=== PATIENT | male | born 1960 | race Caucasian/White ===

== ENCOUNTER 2016-12-25 07:39 | Inpatient (IN) | payer MEDICAID, OTHER ==
[2016-12-25] VITALS (7 sets, daily range): BP systolic 81–106; BP diastolic 34–68
[~2016-12-25] VITALS: Ht 175.3 cm; Wt 53.1 kg
[2016-12-25] MEDS ORDERED: KETOROLAC 30MG/ML VIAL IV ONE (08:00)
[2016-12-25] MEDS ORDERED: VANCOMYCIN 1 G PREMIX 200 ML IV SCH ×2 (08:00→14:45)
[2016-12-25] MEDS ORDERED: PIPERACILLIN/TAZOBACTAM 3.375GM/50ML PREMIX IV ONE (08:15)
[2016-12-25] MEDS ORDERED: PIPERACILLIN/TAZ 3.375G PREMIX 50 ML IV SCH (08:15)
[2016-12-25 08:35] LABS: CHLORIDE 88 mEq/L (98-107); INR 1.4; PROTHROMBIN TIME 14.7 sec (9.4-11.6)
[2016-12-25 08:44] LABS: CARBON DIOXIDE 14 mEq/L (21-32)
[2016-12-25 08:46] LABS: HEMATOCRIT. 36.3 % (42.0-52.0); MEAN CORPUSCULAR HEMOGLOBIN 31.4 pg (28.0-32.0); MEAN PLATELET VOLUME 8.1 fl (7.4-10.4); PLATELET 499 x1000/uL (130-400); RED BLOOD CELL COUNT 3.82 mill/uL (4.7-6.1); RED CELL DISTRIBUTION WIDTH 14.4 % (11.6-14.6)
[2016-12-25] MEDS ORDERED: INSULIN REGULAR (HUMULIN R) 300UNITS/3ML SUBCUT ONE (09:15)
[2016-12-25] MEDS ORDERED: ACETAMINOPHEN 325MG TABLET PO PRN ×2 (09:30→14:45)
[2016-12-25] MEDS ORDERED: SODIUM CHLORIDE 0.9% 1000ML BAG (SEPSIS BOLUS) IV ONE (09:30)
[2016-12-25 10:48] LABS: PLATELET ESTIMATE INCREASED
[2016-12-25] MEDS ORDERED: INSULIN REGULAR (HUMULIN R) 300UNITS/3ML IV ONE (11:30)
[2016-12-25] MEDS ORDERED: DIPHENHYDRAMINE 50MG/ML VIAL IV PRN (14:45)
[2016-12-25] MEDS ORDERED: ONDANSETRON HCL 4MG/2ML VIAL IV PRN (14:45)
[2016-12-25] MEDS ORDERED: DEXTROSE 50% WATER 50ML SYRINGE IV PRN (14:45)
[2016-12-25] MEDS ORDERED: IPRATROPIUM/ALBUTEROL 0.5-3(2.5)MG/3ML NEB INH PRN (14:45)
[2016-12-25] MEDS: SODIUM CHLORIDE 0.9% 1,000 ML IV SCH ×2 (15:07→16:13)
[2016-12-25] MEDS: BLOOD SUGAR DIAGNOSTIC STRIP TEST SCH ×2 (17:08→20:52)
[2016-12-25] MEDS: PIPERACILLIN/TAZ 3.375G PREMIX 50 ML IV SCH (17:31)
[2016-12-25] MEDS: INSULIN LISPRO 100 UNITS/ML SUBCUT SCH ×2 (17:32→21:53)
[2016-12-25] MEDS ORDERED: VANCOMYCIN 750 MG PREMIX 150 ML IV SCH (19:00)
[2016-12-25] MEDS: INSULIN DETEMIR UD 100 UNITS/ML SYR SUBCUT SCH (21:54)
[2016-12-25 22:33] LABS: BG BASE EXCESS -5.2 mmol/L (-2.0-2.0); BG CARBOXYHEMOGLOBIN 0.9 % (0.5-1.5); BG DEOXYHEMOGLOBIN 2.8 % (0.0-5.0); BG FRACTION INSPIRED OXYGEN 21; BG HCO3 ACT 17.1 mmol/L (22.0-26.0); BG METHEMOGLOBIN 0.3 % (0.0-1.5); BG OXYGEN SATURATION 97.2 % (92.0-98.5); BG PCO2 24.3 mmHg (35.0-45.0); BG PH 7.464 (7.350-7.450); BG PO2 88.7 mmHg (75.0-100.0); BG SAMPLE SITE LEFT RADIAL; BG TOTAL HEMOGLOBIN 11.7 g/dL (12.0-18.0); BG VENT MODE ROOM AIR
[2016-12-26] VITALS (17 sets, daily range): BP systolic 80–130; BP diastolic 37–71
[2016-12-26] MEDS: SODIUM CHLORIDE 0.9% 1,000 ML IV SCH (00:25)
[2016-12-26] MEDS: PIPERACILLIN/TAZ 3.375G PREMIX 50 ML IV SCH ×4 (01:05→21:58)
[2016-12-26] MEDS: VANCOMYCIN 500 MG PREMIX 100 ML IV SCH ×3 (02:49→18:43)
[2016-12-26 06:07] LABS: HEMATOCRIT. 32.3 % (42.0-52.0); HEMOGLOBIN. 10.9 g/dL (14.0-18.0); MEAN CORPUSCULAR HEMOGLOBIN 31.6 pg (28.0-32.0); MEAN CORPUSCULAR VOLUME 93.4 fL (80.0-94.0); MEAN PLATELET VOLUME 7.7 fl (7.4-10.4); PLATELET 403 x1000/uL (130-400); RED BLOOD CELL COUNT 3.46 mill/uL (4.7-6.1); RED CELL DISTRIBUTION WIDTH 14.3 % (11.6-14.6)
[2016-12-26 06:30] LABS: CARBON DIOXIDE 18 mEq/L (21-32); CHLORIDE 108 mEq/L (98-107)
[2016-12-26 06:43] LABS: CREATINE KINASE 737 IU/L (39-308)
[2016-12-26] MEDS: BLOOD SUGAR DIAGNOSTIC STRIP TEST SCH ×4 (07:30→21:58)
[2016-12-26] MEDS: DEXT 5%/0.45% NACL KCL 40MEQ/L 1,000 ML IV SCH ×2 (07:58→09:11)
[2016-12-26] MEDS: INSULIN LISPRO 100 UNITS/ML SUBCUT SCH ×4 (08:00→21:00)
[2016-12-26] MEDS ORDERED: KCL 20MEQ/100ML PREMIX 100 ML IV NR ×2 (09:00→16:30)
[2016-12-26 12:14] LABS: HEPATITIS B SURFACE ANTIGEN NEGATIVE
[2016-12-26] MEDS: INSULIN DETEMIR UD 100 UNITS/ML SYR SUBCUT SCH (22:12)
[2016-12-26 22:33] LABS: PLATELET ESTIMATE INCREASED
[2016-12-27] VITALS: BP 95/48
[2016-12-27 02:00] VITALS: BP 92/53
[2016-12-27] MEDS: VANCOMYCIN 500 MG PREMIX 100 ML IV SCH (03:12)
[2016-12-27] MEDS: PIPERACILLIN/TAZ 3.375G PREMIX 50 ML IV SCH (03:12)
[2016-12-27 04:00] VITALS: BP 90/53
[2016-12-27] MEDS ORDERED: TETANUS, DIPHTHERIA, PERTUSSIS VAC/PF 0.5ML (>7YR OLD) IM ONE (05:00)
[2016-12-27 05:18] VITALS: BP 91/50
== END 2016-12-27 05:34 | disposition short-term general hospital (02) | DRG 720 ==
LOC: ER 07:46 → 5EST 09:22 → EDBEDREQSVC 09:26 → EDBEDREQ 09:26 → ENRESERV 11:59 → 5EST 17:43
PROVIDERS: ADMIT Internal Medicine; ATTEND Internal Medicine
DX: A41.9 Sepsis, unspecified organism (principal); E43 Unspecified severe protein-calorie malnutrition; L89.102 Pressure ulcer of unspecified part of back, stage 2; D68.9 Coagulation defect, unspecified; E11.52 Type 2 diabetes mellitus with diabetic peripheral angiopathy with gangrene; L89.152 Pressure ulcer of sacral region, stage 2; E87.1 Hypo-osmolality and hyponatremia; L89.620 Pressure ulcer of left heel, unstageable; L89.890 Pressure ulcer of other site, unstageable; J44.9 Chronic obstructive pulmonary disease, unspecified; L08.9 Local infection of the skin and subcutaneous tissue, unspecified; Z59.0 Homelessness; Z68.1 Body mass index [BMI] 19.9 or less, adult
CPT/HCPCS: 36415; 36600; 71010; 73620; 73630; 80048; 80051; 80053; 80202; 82010; 82375; 82550; 82805; 82962; 83605; 83735; 85025; 85610; 85651; 86140; 86803; 87040; 87077; 87186; 87340; 90715; 93005; 93923; 96365; 96366; 96367; 96372; 96375; 99291; J1815; J1885; J2543; J3370; J3480; J7030; J7050

== ENCOUNTER 2017-09-15 18:26 | Emergency (ER) | payer OTHER ==
[~2017-09-15] VITALS: Ht 172.7 cm; Wt 70.0 kg
[2017-09-15] MEDS ORDERED: METF500T PO (18:32)
[2017-09-15] MEDS ORDERED: GABA-529 PO (18:32)
[2017-09-15] MEDS ORDERED: ATOR10TA PO (18:32)
[2017-09-16] MEDS ORDERED: KETOROLAC 60MG/2ML VIAL IM ONE (01:00)
[2017-09-16 13:42] VITALS: BP 153/78
== END 2017-09-16 13:41 | disposition home or self-care (01) ==
LOC: ER 18:44
DX: T14.8XXA Other injury of unspecified body region, initial encounter (principal); M54.9 Dorsalgia, unspecified; M79.605 Pain in left leg; M79.604 Pain in right leg; E78.00 Pure hypercholesterolemia, unspecified; E11.9 Type 2 diabetes mellitus without complications; Z79.84 Long term (current) use of oral hypoglycemic drugs; Z59.0 Homelessness; W19.XXXA Unspecified fall, initial encounter; Y93.89 Activity, other specified; Y92.89 Other specified places as the place of occurrence of the external cause; Y99.8 Other external cause status
CPT/HCPCS: 73552; 73630; 96372; 99284; J1885

== ENCOUNTER 2017-09-16 18:49 | Emergency (ER) | payer MEDICAID, OTHER ==
[~2017-09-16] VITALS: Ht 170.2 cm; Wt 65.0 kg
[~2017-09-16 18:49] MED LIST: ATOR10TA PO; GABA-529 PO; METF500T PO
[2017-09-19 04:55] VITALS: BP 118/70
== END 2017-09-19 06:38 | disposition left against medical advice (07) ==
LOC: ER 21:15
DX: Z59.0 Homelessness (principal); E11.9 Type 2 diabetes mellitus without complications; E78.00 Pure hypercholesterolemia, unspecified; F17.200 Nicotine dependence, unspecified, uncomplicated; Z89.612 Acquired absence of left leg above knee; Z89.9 Acquired absence of limb, unspecified
CPT/HCPCS: 99283

== ENCOUNTER 2018-06-11 14:14 | Inpatient (IN) | payer MEDICAID ==
[~2018-06-11] VITALS: Ht 177.8 cm; Wt 64.0 kg
[2018-06-11] MEDS ORDERED: MORPHINE SULFATE 4 MG/ML CPJ (NOT FOR IM USE) IV STA (17:51)
[2018-06-11] MEDS ORDERED: ONDANSETRON HCL 4MG/2ML INJ IV STA (17:51)
[2018-06-11] MEDS ORDERED: SODIUM CHLORIDE 0.9% 1000ML BAG (SEPSIS BOLUS) IV ONE (18:00)
[2018-06-11] MEDS ORDERED: VANCOMYCIN 1 G PREMIX 200 ML IV ONE (18:00)
[2018-06-11] MEDS ORDERED: PIPERACILLIN/TAZ 3.375G PREMIX 50 ML IV ONE (18:00)
[2018-06-11] MEDS ORDERED: TETANUS, DIPHTHERIA, PERTUSSIS VAC/PF 0.5ML (>7YR OLD) IM ONE (18:15)
[2018-06-11 18:48] LABS: BASOPHILS % 0.8 % (0.0-2.0); EOSINOPHILS % 1.6 % (0.0-5.0); HEMATOCRIT. 33.1 % (42.0-52.0); HEMOGLOBIN. 11.4 g/dL (14.0-18.0); LYMPHOCYTES % 11.2 % (20.0-50.0); MEAN CORPUSCULAR HEMOGLOBIN 32.6 pg (28.0-32.0); MEAN PLATELET VOLUME 7.2 fl (7.4-10.4); MONOCYTES % 14.2 % (2.0-8.0); NEUTROPHILS % 72.2 % (40.0-76.0); PLATELET 419 x1000/uL (130-400); RED BLOOD CELL COUNT 3.49 mill/uL (4.7-6.1)
[2018-06-11 18:56] LABS: PARTIAL THROMBOPLASTIN TIME 29.7 sec (23.4-31.0); PROTHROMBIN TIME 9.8 sec (9.1-11.1)
[2018-06-11 18:57] LABS: CHLORIDE 93 mEq/L (98-107)
[2018-06-11 18:59] LABS: CLARITY URINE CLEAR (CLEAR); COLOR URINE YELLOW (YELLOW); KETONES URINE NEGATIVE (NEGATIVE); LEUKOCYTE ESTERASE URINE NEGATIVE (NEGATIVE); NITRITE URINE NEGATIVE (NEGATIVE); OCCULT BLOOD URINE NEGATIVE (NEGATIVE); PROTEIN URINE NEGATIVE (NEGATIVE); SPECIFIC GRAVITY URINE 1.037 (1.005-1.030); UROBILINOGEN URINE 0.2 E.U./dL (0.2-1.0)
[2018-06-11 19:02] LABS: ETHANOL BLOOD < 10 mg/dL
[2018-06-11 19:32] LABS: *AMPHETAMINES SCREEN URINE NEGATIVE (NEGATIVE); *BARBITURATES SCREEN URINE NEGATIVE (NEGATIVE); *BENZODIAZEPINES SCREEN URINE NEGATIVE (NEGATIVE); *COCAINE SCREEN URINE NEGATIVE (NEGATIVE); METHADONE URINE SCREEN NEGATIVE (NEGATIVE); OPIATES URINE SCREEN NEGATIVE (NEGATIVE)
[2018-06-11 19:34] LABS: CANNABINOID URINE SCREEN NEGATIVE (NEGATIVE); PHENCYCLIDINE URINE SCREEN NEGATIVE (NEGATIVE)
[2018-06-11] MEDS ORDERED: INSULIN REGULAR (HUMULIN R) 300UNITS/3ML IV ONE (19:45)
[2018-06-11] MEDS ORDERED: VANCOMYCIN 1 G PREMIX 200 ML IV SCH (22:15)
[2018-06-11] MEDS ORDERED: DIPHENHYDRAMINE 50MG/ML VIAL IV PRN (22:15)
[2018-06-11] MEDS ORDERED: DEXTROSE 50% WATER 50ML SYRINGE IV PRN (22:15)
[2018-06-11] MEDS ORDERED: ONDANSETRON HCL 4MG/2ML INJ IV PRN (22:15)
[2018-06-11] MEDS ORDERED: MAGNESIUM/ALUMINUM HYDROXIDE/SIMETHICONE 30ML UDC PO PRN (22:15)
[2018-06-11] MEDS ORDERED: CLONIDINE 0.1MG TABLET PO PRN (22:15)
[2018-06-11 22:30] VITALS: BP 133/62
[2018-06-11] MEDS: SODIUM CHLORIDE 0.9% 1,000 ML IV SCH (22:53)
[2018-06-11] MEDS: ATORVASTATIN CALCIUM 10MG TABLET PO SCH (22:54)
[2018-06-12] VITALS: BP 133/62
[2018-06-12] MEDS: INSULIN GLARGINE UD 100 UNITS/ML SYR SUBCUT SCH ×2 (01:37→21:15)
[2018-06-12] MEDS: VANCOMYCIN 750 MG PREMIX 150 ML IV SCH ×2 (01:54→09:43)
[2018-06-12] MEDS: PIPERACILLIN/TAZ 3.375G PREMIX 50 ML IV SCH ×2 (03:28→11:48)
[2018-06-12 04:00] VITALS: BP 139/68
[2018-06-12] MEDS: GABAPENTIN 100MG CAPSULE PO SCH ×3 (05:11→21:16)
[2018-06-12] MEDS: BLOOD SUGAR DIAGNOSTIC STRIP TEST SCH ×4 (05:12→20:47)
[2018-06-12 06:41] LABS: BASOPHILS % 0.6 % (0.0-2.0); EOSINOPHILS % 2.5 % (0.0-5.0); HEMATOCRIT. 30.1 % (42.0-52.0); HEMOGLOBIN. 10.4 g/dL (14.0-18.0); MEAN CORPUSCULAR HEMOGLOBIN 32.9 pg (28.0-32.0); MEAN CORPUSCULAR VOLUME 95.1 fL (80.0-94.0); MEAN PLATELET VOLUME 7.1 fl (7.4-10.4); MONOCYTES % 14.1 % (2.0-8.0); NEUTROPHILS % 68.8 % (40.0-76.0); PLATELET 373 x1000/uL (130-400); RED BLOOD CELL COUNT 3.16 mill/uL (4.7-6.1); RED CELL DISTRIBUTION WIDTH 12.9 % (11.6-14.6)
[2018-06-12 06:52] LABS: CHLORIDE 101 mEq/L (98-107)
[2018-06-12 08:00] VITALS: BP 108/63
[2018-06-12] MEDS: METFORMIN HCL 500MG TABLET PO SCH ×2 (08:39→18:05)
[2018-06-12] MEDS: SODIUM CHLORIDE 0.9% 1,000 ML IV SCH ×2 (08:40→18:33)
[2018-06-12] MEDS: INSULIN LISPRO 100 UNITS/ML SUBCUT SCH ×4 (08:44→21:16)
[2018-06-12 12:00] VITALS: BP 129/71
[2018-06-12 16:00] VITALS: BP 129/70
[2018-06-12] MEDS ORDERED: PNEUMOCOCCAL 23-VAL P-SAC VAC 0.5 ML IM ONE (16:30)
[2018-06-12] MEDS ORDERED: INFLUENZA VIRUS VACCINE(AFLURIA) 0.5ML SYR IM ONE (16:30)
[2018-06-12] MEDS: VANCOMYCIN 1 G PREMIX 200 ML IV SCH (18:32)
[2018-06-12 20:00] VITALS: BP 113/64
[2018-06-12] MEDS: ACETAMINOPHEN 325MG TABLET PO PRN (20:37)
[2018-06-12] MEDS: ATORVASTATIN CALCIUM 10MG TABLET PO SCH (20:47)
[2018-06-13] VITALS: BP 110/58
[2018-06-13] MEDS: VANCOMYCIN 1 G PREMIX 200 ML IV SCH (01:21)
[2018-06-13 04:00] VITALS: BP 127/67
[2018-06-13] MEDS: SODIUM CHLORIDE 0.9% 1,000 ML IV SCH ×2 (04:13→22:39)
[2018-06-13] MEDS: GABAPENTIN 100MG CAPSULE PO SCH ×3 (05:18→21:23)
[2018-06-13] MEDS: BLOOD SUGAR DIAGNOSTIC STRIP TEST SCH ×4 (05:18→20:22)
[2018-06-13 08:00] VITALS: BP 118/67
[2018-06-13] MEDS: METFORMIN HCL 500MG TABLET PO SCH ×2 (08:16→17:42)
[2018-06-13] MEDS: INSULIN LISPRO 100 UNITS/ML SUBCUT SCH ×4 (08:17→21:24)
[2018-06-13 12:00] VITALS: BP 142/72
[2018-06-13] MEDS: VANCOMYCIN 750 MG PREMIX 150 ML IV SCH ×2 (15:45→22:39)
[2018-06-13 16:00] VITALS: BP 97/56
[2018-06-13 20:00] VITALS: BP 154/76
[2018-06-13] MEDS: ATORVASTATIN CALCIUM 10MG TABLET PO SCH (20:21)
[2018-06-13] MEDS: INSULIN GLARGINE UD 100 UNITS/ML SYR SUBCUT SCH (21:24)
[2018-06-13] MEDS: ACETAMINOPHEN 325MG TABLET PO PRN (21:30)
[2018-06-14] VITALS (7 sets, daily range): BP systolic 112–155; BP diastolic 62–75
[2018-06-14] MEDS: GABAPENTIN 100MG CAPSULE PO SCH ×3 (05:32→22:00)
[2018-06-14] MEDS: ACETAMINOPHEN 325MG TABLET PO PRN (05:39)
[2018-06-14] MEDS: VANCOMYCIN 750 MG PREMIX 150 ML IV SCH ×2 (06:14→14:22)
[2018-06-14] MEDS: BLOOD SUGAR DIAGNOSTIC STRIP TEST SCH ×4 (06:15→21:00)
[2018-06-14] MEDS: INSULIN LISPRO 100 UNITS/ML SUBCUT SCH ×4 (07:41→21:00)
[2018-06-14] MEDS: METFORMIN HCL 500MG TABLET PO SCH ×2 (08:24→17:53)
[2018-06-14] MEDS: SODIUM CHLORIDE 0.9% 1,000 ML IV SCH ×2 (10:06→20:06)
[2018-06-14] MEDS: ENOXAPARIN 40MG/0.4ML SYR SUBCUT SCH (18:52)
[2018-06-14] MEDS: ATORVASTATIN CALCIUM 10MG TABLET PO SCH (21:00)
[2018-06-14] MEDS: INSULIN GLARGINE UD 100 UNITS/ML SYR SUBCUT SCH (22:00)
[2018-06-15] VITALS: BP 119/70
[2018-06-15] MEDS: VANCOMYCIN 750 MG PREMIX 150 ML IV SCH ×4 (01:19→23:35)
[2018-06-15 04:00] VITALS: BP 116/56
[2018-06-15] MEDS: BLOOD SUGAR DIAGNOSTIC STRIP TEST SCH ×4 (07:00→20:05)
[2018-06-15] MEDS: GABAPENTIN 100MG CAPSULE PO SCH ×3 (07:03→20:04)
[2018-06-15] MEDS: SODIUM CHLORIDE 0.9% 1,000 ML IV SCH ×2 (07:05→16:16)
[2018-06-15 07:32] LABS: CHLORIDE 103 mEq/L (98-107)
[2018-06-15] MEDS: INSULIN LISPRO 100 UNITS/ML SUBCUT SCH ×4 (07:50→23:24)
[2018-06-15 08:00] VITALS: BP 129/73
[2018-06-15] MEDS: METFORMIN HCL 500MG TABLET PO SCH ×2 (08:37→17:48)
[2018-06-15] MEDS: ENOXAPARIN 40MG/0.4ML SYR SUBCUT SCH (08:38)
[2018-06-15 12:00] VITALS: BP 113/73
[2018-06-15 16:00] VITALS: BP 102/54
[2018-06-15 20:00] VITALS: BP 118/67
[2018-06-15] MEDS: ATORVASTATIN CALCIUM 10MG TABLET PO SCH (20:03)
[2018-06-15] MEDS: ACETAMINOPHEN 325MG TABLET PO PRN (20:04)
[2018-06-15] MEDS: INSULIN GLARGINE UD 100 UNITS/ML SYR SUBCUT SCH (23:24)
[2018-06-16] VITALS: BP 120/68
[2018-06-16] MEDS: SODIUM CHLORIDE 0.9% 1,000 ML IV SCH ×3 (03:45→22:17)
[2018-06-16 04:00] VITALS: BP 118/68
[2018-06-16] MEDS: BLOOD SUGAR DIAGNOSTIC STRIP TEST SCH ×4 (06:28→21:00)
[2018-06-16] MEDS: GABAPENTIN 100MG CAPSULE PO SCH ×3 (06:34→22:18)
[2018-06-16] MEDS: VANCOMYCIN 750 MG PREMIX 150 ML IV SCH ×2 (06:34→14:50)
[2018-06-16 08:00] VITALS: BP 124/76
[2018-06-16] MEDS: METFORMIN HCL 500MG TABLET PO SCH ×2 (09:15→18:13)
[2018-06-16] MEDS: ENOXAPARIN 40MG/0.4ML SYR SUBCUT SCH (09:15)
[2018-06-16] MEDS: INSULIN LISPRO 100 UNITS/ML SUBCUT SCH ×4 (09:19→23:12)
[2018-06-16 12:00] VITALS: BP 114/72
[2018-06-16 16:00] VITALS: BP 118/85
[2018-06-16 20:00] VITALS: BP 128/55
[2018-06-16] MEDS: ATORVASTATIN CALCIUM 10MG TABLET PO SCH (22:17)
[2018-06-16] MEDS: INSULIN GLARGINE UD 100 UNITS/ML SYR SUBCUT SCH (23:23)
[2018-06-17] VITALS: BP 118/64
[2018-06-17 04:00] VITALS: BP 115/67
[2018-06-17] MEDS: BLOOD SUGAR DIAGNOSTIC STRIP TEST SCH ×4 (06:31→20:52)
[2018-06-17] MEDS: VANCOMYCIN 750 MG PREMIX 150 ML IV SCH ×3 (06:31→22:02)
[2018-06-17] MEDS: GABAPENTIN 100MG CAPSULE PO SCH ×3 (06:31→21:08)
[2018-06-17] MEDS: INSULIN LISPRO 100 UNITS/ML SUBCUT SCH ×4 (06:40→20:50)
[2018-06-17 08:00] VITALS: BP 128/55
[2018-06-17] MEDS: METFORMIN HCL 500MG TABLET PO SCH ×2 (10:57→18:54)
[2018-06-17] MEDS: ENOXAPARIN 40MG/0.4ML SYR SUBCUT SCH (10:59)
[2018-06-17 12:00] VITALS: BP 118/64
[2018-06-17 16:00] VITALS: BP 115/67
[2018-06-17 20:00] VITALS: BP 134/66
[2018-06-17] MEDS: ATORVASTATIN CALCIUM 10MG TABLET PO SCH (20:51)
[2018-06-17] MEDS: ACETAMINOPHEN 325MG TABLET PO PRN (20:51)
[2018-06-17] MEDS: SODIUM CHLORIDE 0.9% 1,000 ML IV SCH (20:51)
[2018-06-17] MEDS: INSULIN GLARGINE UD 100 UNITS/ML SYR SUBCUT SCH (21:09)
[2018-06-18] VITALS: BP 131/74
[2018-06-18 04:00] VITALS: BP 136/76
[2018-06-18] MEDS: BLOOD SUGAR DIAGNOSTIC STRIP TEST SCH ×4 (05:52→22:30)
[2018-06-18] MEDS: INSULIN LISPRO 100 UNITS/ML SUBCUT SCH ×4 (05:52→22:30)
[2018-06-18] MEDS: VANCOMYCIN 750 MG PREMIX 150 ML IV SCH ×3 (06:08→23:55)
[2018-06-18] MEDS: GABAPENTIN 100MG CAPSULE PO SCH ×3 (06:08→22:21)
[2018-06-18 08:00] VITALS: BP 120/69
[2018-06-18] MEDS: METFORMIN HCL 500MG TABLET PO SCH ×2 (09:25→18:04)
[2018-06-18] MEDS: ENOXAPARIN 40MG/0.4ML SYR SUBCUT SCH (09:25)
[2018-06-18 12:24] VITALS: BP 141/62
[2018-06-18] MEDS: ACETAMINOPHEN 325MG TABLET PO PRN ×2 (15:22→23:34)
[2018-06-18 16:37] VITALS: BP 128/66
[2018-06-18] MEDS: SODIUM CHLORIDE 0.9% 1,000 ML IV SCH ×3 (18:53→23:50)
[2018-06-18] MEDS: ATORVASTATIN CALCIUM 10MG TABLET PO SCH (22:21)
[2018-06-18] MEDS: INSULIN GLARGINE UD 100 UNITS/ML SYR SUBCUT SCH (22:30)
[2018-06-19] MEDS: VANCOMYCIN 750 MG PREMIX 150 ML IV SCH ×2 (06:09→10:39)
[2018-06-19] MEDS: GABAPENTIN 100MG CAPSULE PO SCH ×3 (06:28→21:47)
[2018-06-19] MEDS: BLOOD SUGAR DIAGNOSTIC STRIP TEST SCH ×4 (06:31→20:51)
[2018-06-19 07:17] LABS: BASOPHILS % 0.8 % (0.0-2.0); EOSINOPHILS % 1.9 % (0.0-5.0); HEMATOCRIT. 30.7 % (42.0-52.0); HEMOGLOBIN. 10.5 g/dL (14.0-18.0); LYMPHOCYTES % 27.8 % (20.0-50.0); MEAN CORPUSCULAR HEMOGLOBIN 32.5 pg (28.0-32.0); MEAN CORPUSCULAR VOLUME 95.4 fL (80.0-94.0); MEAN PLATELET VOLUME 7.3 fl (7.4-10.4); MONOCYTES % 10.8 % (2.0-8.0); NEUTROPHILS % 58.7 % (40.0-76.0); PLATELET 467 x1000/uL (130-400); RED BLOOD CELL COUNT 3.22 mill/uL (4.7-6.1); RED CELL DISTRIBUTION WIDTH 12.6 % (11.6-14.6)
[2018-06-19] MEDS: INSULIN LISPRO 100 UNITS/ML SUBCUT SCH ×4 (07:50→21:02)
[2018-06-19 08:00] VITALS: BP 111/60
[2018-06-19 08:03] LABS: CHLORIDE 107 mEq/L (98-107)
[2018-06-19 08:13] LABS: VANCOMYCIN TROUGH 18.8 ug/mL (5.0-10.0)
[2018-06-19] MEDS: METFORMIN HCL 500MG TABLET PO SCH ×2 (09:32→19:02)
[2018-06-19] MEDS: ENOXAPARIN 40MG/0.4ML SYR SUBCUT SCH (09:33)
[2018-06-19 12:33] VITALS: BP 151/78
[2018-06-19] MEDS: ACETAMINOPHEN 325MG TABLET PO PRN (14:30)
[2018-06-19 16:18] VITALS: BP 114/63
[2018-06-19] MEDS: SODIUM CHLORIDE 0.9% 1,000 ML IV SCH (19:47)
[2018-06-19 20:00] VITALS: BP 145/81
[2018-06-19] MEDS: VANCOMYCIN 1250MG in DEXTROSE 5% WATER 250ML IV SCH (20:44)
[2018-06-19] MEDS: ATORVASTATIN CALCIUM 10MG TABLET PO SCH (20:44)
[2018-06-19] MEDS: INSULIN GLARGINE UD 100 UNITS/ML SYR SUBCUT SCH (21:46)
[2018-06-20] VITALS: BP 153/84
[2018-06-20 04:00] VITALS: BP 127/77
[2018-06-20] MEDS: SODIUM CHLORIDE 0.9% 1,000 ML IV SCH ×2 (06:21→21:00)
[2018-06-20] MEDS: BLOOD SUGAR DIAGNOSTIC STRIP TEST SCH ×4 (06:21→21:28)
[2018-06-20] MEDS: GABAPENTIN 100MG CAPSULE PO SCH ×3 (06:21→21:28)
[2018-06-20 08:00] VITALS: BP 134/77
[2018-06-20] MEDS: METFORMIN HCL 500MG TABLET PO SCH ×2 (08:47→18:27)
[2018-06-20] MEDS: VANCOMYCIN 1250MG in DEXTROSE 5% WATER 250ML IV SCH ×2 (08:48→21:28)
[2018-06-20] MEDS: ENOXAPARIN 40MG/0.4ML SYR SUBCUT SCH (08:48)
[2018-06-20] MEDS: INSULIN LISPRO 100 UNITS/ML SUBCUT SCH ×4 (08:57→21:00)
[2018-06-20 12:00] VITALS: BP 121/67
[2018-06-20 16:00] VITALS: BP 136/73
[2018-06-20 20:00] VITALS: BP 136/77
[2018-06-20] MEDS: ATORVASTATIN CALCIUM 10MG TABLET PO SCH (21:28)
[2018-06-20] MEDS: INSULIN GLARGINE UD 100 UNITS/ML SYR SUBCUT SCH (23:14)
[2018-06-21] VITALS: BP 142/79
[2018-06-21 04:00] VITALS: BP 138/76
[2018-06-21] MEDS: SODIUM CHLORIDE 0.9% 1,000 ML IV SCH ×2 (06:00→12:03)
[2018-06-21] MEDS: GABAPENTIN 100MG CAPSULE PO SCH ×3 (06:19→21:29)
[2018-06-21] MEDS: BLOOD SUGAR DIAGNOSTIC STRIP TEST SCH ×4 (06:20→20:14)
[2018-06-21] MEDS: INSULIN LISPRO 100 UNITS/ML SUBCUT SCH ×4 (07:50→21:29)
[2018-06-21 08:00] VITALS: BP 114/60
[2018-06-21 08:34] LABS: CHLORIDE 108 mEq/L (98-107)
[2018-06-21] MEDS: METFORMIN HCL 500MG TABLET PO SCH ×2 (08:48→16:54)
[2018-06-21] MEDS: ENOXAPARIN 40MG/0.4ML SYR SUBCUT SCH (08:49)
[2018-06-21] MEDS: VANCOMYCIN 1250MG in DEXTROSE 5% WATER 250ML IV SCH (08:49)
[2018-06-21 12:00] VITALS: BP 122/63
[2018-06-21] MEDS ORDERED: ZINC SULFATE 220 MG ( 50 ) CAPSULE PO SCH (14:30)
[2018-06-21] MEDS ORDERED: MULTIVITAMINS,THER W-MINERALS TABLET PO SCH (14:30)
[2018-06-21] MEDS: AMOXICILLIN 500 MG CAPSULE PO SCH ×2 (15:07→21:29)
[2018-06-21 16:00] VITALS: BP 144/69
[2018-06-21 20:00] VITALS: BP 142/74
[2018-06-21] MEDS: ATORVASTATIN CALCIUM 10MG TABLET PO SCH (20:13)
[2018-06-21] MEDS ORDERED: ASCORBIC ACID 250 MG TABLET PO SCH (21:00)
[2018-06-21] MEDS ORDERED: SULFAMETHOXAZOLE/TRIMETHOPRIM 800/160MG TABLET PO SCH (21:00)
[2018-06-21] MEDS: INSULIN GLARGINE UD 100 UNITS/ML SYR SUBCUT SCH (21:30)
[2018-06-22] VITALS: BP 128/71
[2018-06-22 04:00] VITALS: BP 105/61
[2018-06-22] MEDS: BLOOD SUGAR DIAGNOSTIC STRIP TEST SCH (05:41)
[2018-06-22] MEDS: GABAPENTIN 100MG CAPSULE PO SCH (05:42)
[2018-06-22] MEDS: AMOXICILLIN 500 MG CAPSULE PO SCH (05:42)
[2018-06-22 08:00] VITALS: BP_SYST 107; BP_SYST 122; BP_DIAS 67; BP_DIAS 70
[2018-06-22 12:00] VITALS: BP_SYST 107; BP_SYST 122; BP_DIAS 69; BP_DIAS 70
[2018-06-22] MEDS: INSULIN LISPRO 100 UNITS/ML SUBCUT SCH (12:50)
[2018-06-22 13:54] VITALS: BP 107/69
== END 2018-06-22 14:35 | DRG 384 ==
LOC: ER 14:29 → 6EST 18:19 → EDBEDREQ 19:21 → ENRESERV 20:17 → 6EST 06-16 09:29
PROVIDERS: ADMIT Internal Medicine; ATTEND Internal Medicine
DX: S81.001A Unspecified open wound, right knee, initial encounter (principal); E11.51 Type 2 diabetes mellitus with diabetic peripheral angiopathy without gangrene; L02.415 Cutaneous abscess of right lower limb; Z89.612 Acquired absence of left leg above knee; E11.65 Type 2 diabetes mellitus with hyperglycemia; E44.1 Mild protein-calorie malnutrition; D64.9 Anemia, unspecified; E87.1 Hypo-osmolality and hyponatremia; B95.62 Methicillin resistant Staphylococcus aureus infection as the cause of diseases classified elsewhere; B95.0 Streptococcus, group A, as the cause of diseases classified elsewhere; L03.115 Cellulitis of right lower limb; I10 Essential (primary) hypertension; E78.00 Pure hypercholesterolemia, unspecified; Z68.20 Body mass index [BMI] 20.0-20.9, adult; Z59.0 Homelessness; Z99.3 Dependence on wheelchair; Z79.4 Long term (current) use of insulin; Z79.899 Other long term (current) drug therapy; X58.XXXA Exposure to other specified factors, initial encounter; Y93.89 Activity, other specified; Y92.89 Other specified places as the place of occurrence of the external cause
CPT/HCPCS: 36415; 71045; 73562; 73721; 80048; 80202; 80305; 82962; 83605; 83735; 84100; 84134; 84145; 87070; 87077; 90686; 90715; 90732; 93005; 93971; 96374; 99285; J1650; J1815; J2270; J2405; J2543; J3370; J7030; J7060

== ENCOUNTER 2018-09-09 16:21 | Emergency (ER) | payer MEDICAID ==
[~2018-09-09] VITALS: Ht 170.2 cm; Wt 67.0 kg
[2018-09-09] MEDS ORDERED: DEXT 5%/0.9% NACL 1,000 ML IV ONE (17:15)
[2018-09-09] MEDS ORDERED: THIAMINE HCL 100MG TABLET PO ONE (17:15)
[2018-09-09] MEDS ORDERED: KETOROLAC 30MG/ML VIAL IV ONE (17:15)
[2018-09-09 17:47] LABS: BASOPHILS % 0.3 % (0.0-2.0); EOSINOPHILS % 1.9 % (0.0-5.0); HEMATOCRIT. 36.2 % (42.0-52.0); HEMOGLOBIN. 12.4 g/dL (14.0-18.0); LYMPHOCYTES % 29.9 % (20.0-50.0); MEAN CORPUSCULAR HEMOGLOBIN 31.5 pg (28.0-32.0); MEAN CORPUSCULAR VOLUME 91.6 fL (80.0-94.0); MONOCYTES % 12.1 % (2.0-8.0); NEUTROPHILS % 55.8 % (40.0-76.0); PLATELET 176 x1000/uL (130-400); RED BLOOD CELL COUNT 3.95 mill/uL (4.7-6.1); RED CELL DISTRIBUTION WIDTH 13.4 % (11.6-14.6)
[2018-09-09 17:53] LABS: CHLORIDE 103 mEq/L (98-107)
[2018-09-09 18:04] LABS: CLARITY URINE CLEAR (CLEAR); COLOR URINE YELLOW (YELLOW); KETONES URINE NEGATIVE (NEGATIVE); LEUKOCYTE ESTERASE URINE NEGATIVE (NEGATIVE); NITRITE URINE NEGATIVE (NEGATIVE); OCCULT BLOOD URINE NEGATIVE (NEGATIVE); PH URINE 6.5 (4.5-8.0); PROTEIN URINE NEGATIVE (NEGATIVE); SPECIFIC GRAVITY URINE 1.007 (1.005-1.030); UROBILINOGEN URINE 0.2 E.U./dL (0.2-1.0)
[2018-09-09 18:16] LABS: *AMPHETAMINES SCREEN URINE PRESUMTIVE POSITIVE (NEGATIVE); *BARBITURATES SCREEN URINE NEGATIVE (NEGATIVE); *BENZODIAZEPINES SCREEN URINE NEGATIVE (NEGATIVE); *COCAINE SCREEN URINE NEGATIVE (NEGATIVE); METHADONE URINE SCREEN NEGATIVE (NEGATIVE); OPIATES URINE SCREEN NEGATIVE (NEGATIVE)
[2018-09-09 18:17] LABS: CANNABINOID URINE SCREEN NEGATIVE (NEGATIVE); PHENCYCLIDINE URINE SCREEN NEGATIVE (NEGATIVE)
[2018-09-09 21:37] VITALS: BP 144/63
[2018-09-09] MEDS ORDERED: CHLORDIAZEPOXIDE 25MG CAPSULE PO SCH (22:00)
== END 2018-09-09 21:39 | disposition home or self-care (01) ==
LOC: ER 17:18
DX: M79.605 Pain in left leg (principal); M79.604 Pain in right leg; E11.9 Type 2 diabetes mellitus without complications; I10 Essential (primary) hypertension; F10.10 Alcohol abuse, uncomplicated; F15.10 Other stimulant abuse, uncomplicated; E78.00 Pure hypercholesterolemia, unspecified; Z79.899 Other long term (current) drug therapy; Z89.612 Acquired absence of left leg above knee; Y90.9 Presence of alcohol in blood, level not specified
CPT/HCPCS: 36415; 80053; 80305; 81003; 83690; 84484; 85025; 93005; 96374; 99284; J1885; J7042

== ENCOUNTER 2019-08-31 09:40 | Inpatient (IN) | payer MEDICARE, MEDICAID ==
[~2019-08-31] VITALS: Ht 172.7 cm; Wt 68.0 kg
[2019-08-31] MEDS ORDERED: PIPERACILLIN/TAZ 3.375G PREMIX 50 ML IV ONE (10:00)
[2019-08-31] MEDS ORDERED: SODIUM CHLORIDE 0.9% 1000ML BAG (SEPSIS BOLUS) IV ONE (10:00)
[2019-08-31] MEDS ORDERED: VANCOMYCIN 1 G PREMIX 200 ML IV ONE (10:00)
[2019-08-31 11:04] LABS: HEMATOCRIT. 24.8 % (42.0-52.0); HEMOGLOBIN. 8.5 g/dL (14.0-18.0); MEAN CORPUSCULAR HEMOGLOBIN 30.9 pg (28.0-32.0); MEAN CORPUSCULAR VOLUME 90.2 fL (80.0-94.0); MEAN PLATELET VOLUME 7.5 fl (7.4-10.4); PLATELET 326 x1000/uL (130-400); RED BLOOD CELL COUNT 2.76 mill/uL (4.7-6.1); RED CELL DISTRIBUTION WIDTH 13.3 % (11.6-14.6)
[2019-08-31 11:12] LABS: CHLORIDE 91 mEq/L (98-107)
[2019-08-31 11:14] LABS: INR 1.3; PROTHROMBIN TIME 13.7 sec (9.6-11.0)
[2019-08-31 11:18] LABS: ETHANOL BLOOD < 10 mg/dL
[2019-08-31 11:22] LABS: CREATINE KINASE 25 IU/L (39-308)
[2019-08-31 11:57] LABS: PLATELET ESTIMATE NORMAL
[2019-08-31 12:21] LABS: CLARITY URINE CLEAR (CLEAR); COLOR URINE YELLOW (YELLOW); KETONES URINE 1+ (NEGATIVE); LEUKOCYTE ESTERASE URINE NEGATIVE (NEGATIVE); NITRITE URINE NEGATIVE (NEGATIVE); OCCULT BLOOD URINE NEGATIVE (NEGATIVE); PROTEIN URINE TRACE (NEGATIVE)
[2019-08-31] MEDS ORDERED: SODIUM CHLORIDE 0.9% 1,000 ML IV SCH (12:37)
[2019-08-31 12:43] LABS: *AMPHETAMINES SCREEN URINE NEGATIVE (NEGATIVE); *BARBITURATES SCREEN URINE NEGATIVE (NEGATIVE); *BENZODIAZEPINES SCREEN URINE NEGATIVE (NEGATIVE)
[2019-08-31 12:44] LABS: *COCAINE SCREEN URINE NEGATIVE (NEGATIVE); CANNABINOID URINE SCREEN NEGATIVE (NEGATIVE); METHADONE URINE SCREEN NEGATIVE (NEGATIVE); OPIATES URINE SCREEN NEGATIVE (NEGATIVE); PHENCYCLIDINE URINE SCREEN NEGATIVE (NEGATIVE)
[2019-08-31] MEDS ORDERED: ZOLPIDEM TARTRATE 5MG TABLET PO PRN ×2 (12:45→18:30)
[2019-08-31] MEDS ORDERED: MORPHINE SULFATE 2 MG/ML CPJ (NOT FOR IM USE) IV PRN (12:45)
[2019-08-31] MEDS ORDERED: NITROGLYCERIN 0.4MG TABLET SL SL PRN (12:45)
[2019-08-31] MEDS ORDERED: ONDANSETRON HCL 4MG/2ML INJ IV PRN (12:45)
[2019-08-31] MEDS ORDERED: DOCUSATE SODIUM 100MG CAPSULE PO PRN (12:45)
[2019-08-31] MEDS ORDERED: ACETAMINOPHEN 325MG TABLET PO PRN (12:45)
[2019-08-31] MEDS ORDERED: ENOXAPARIN 40MG/0.4ML SYR SUBCUT SCH (12:45)
[2019-08-31] MEDS ORDERED: DEXTROSE 50% WATER 50ML SYRINGE IV PRN (12:45)
[2019-08-31] MEDS ORDERED: CLONIDINE 0.1MG TABLET PO PRN (12:45)
[2019-08-31] MEDS ORDERED: GUAIFENESIN 200MG/10ML SUGAR FREE UDC PO PRN (12:45)
[2019-08-31] MEDS ORDERED: TRAMADOL 50MG TABLET PO PRN (12:45)
[2019-08-31] MEDS ORDERED: PIPERACILLIN/TAZ 3.375G PREMIX 50 ML IV SCH ×2 (12:45→18:30)
[2019-08-31] MEDS ORDERED: IPRATROPIUM/ALBUTEROL 0.5-3(2.5)MG/3ML NEB ORI PRN ×2 (12:45→18:30)
[2019-08-31] MEDS ORDERED: MAGNESIUM/ALUMINUM HYDROXIDE/SIMETHICONE 30ML UDC PO PRN (12:45)
[2019-08-31] MEDS ORDERED: KETOROLAC 15MG/ML VIAL IV PRN (12:45)
[2019-08-31] MEDS ORDERED: BLOOD SUGAR DIAGNOSTIC STRIP TEST SCH (13:00)
[2019-08-31 13:06] LABS: T4 FREE 1.3 ng/dL (0.76-1.46)
[2019-08-31] MEDS ORDERED: INSULIN LISPRO 100 UNITS/ML SUBCUT SCH (13:20)
[2019-08-31 14:58] LABS: FOLIC ACID (FOLATE) SERUM 9.3 ng/mL (>5.38)
[2019-08-31] MEDS: SODIUM CHLORIDE 0.9% 1,000 ML IV SCH (19:30)
[2019-08-31 20:00] VITALS: BP 115/55
[2019-08-31] MEDS ORDERED: FAMOTIDINE 20MG TABLET PO SCH (21:00)
[2019-08-31] MEDS ORDERED: ASCORBIC ACID 500 MG TABLET PO SCH (21:00)
[2019-08-31] MEDS: BLOOD SUGAR DIAGNOSTIC STRIP TEST SCH (21:00)
[2019-08-31] MEDS: INSULIN LISPRO 100 UNITS/ML SUBCUT SCH (21:00)
[2019-08-31 21:05] VITALS: BP 115/55
[2019-08-31] MEDS: VANCOMYCIN 1 G PREMIX 200 ML IV SCH (23:27)
[2019-08-31] MEDS: ENOXAPARIN 40MG/0.4ML SYR SUBCUT SCH (23:27)
[2019-08-31] MEDS: PIPERACILLIN/TAZOBACTAM 3.375 G in DEXT 5% WATER 100 ML IV SCH (23:27)
[2019-08-31] MEDS: ASCORBIC ACID 500 MG TABLET PO SCH (23:34)
[2019-08-31] MEDS: FAMOTIDINE 20MG TABLET PO SCH (23:35)
[2019-08-31] MEDS: ACETAMINOPHEN 325MG TABLET PO PRN (23:51)
[2019-09-01 04:00] VITALS: BP 111/52
[2019-09-01] MEDS: ASCORBIC ACID 500 MG TABLET PO SCH ×2 (06:07→20:57)
[2019-09-01] MEDS: FAMOTIDINE 20MG TABLET PO SCH ×2 (06:08→20:57)
[2019-09-01] MEDS: BLOOD SUGAR DIAGNOSTIC STRIP TEST SCH ×4 (06:08→20:57)
[2019-09-01] MEDS: VANCOMYCIN 1 G PREMIX 200 ML IV SCH ×2 (06:10→13:42)
[2019-09-01] MEDS: PIPERACILLIN/TAZOBACTAM 3.375 G in DEXT 5% WATER 100 ML IV SCH ×4 (06:10→23:01)
[2019-09-01 08:00] VITALS: BP 123/62
[2019-09-01] MEDS: INSULIN LISPRO 100 UNITS/ML SUBCUT SCH ×4 (08:41→21:24)
[2019-09-01] MEDS: ZINC SULFATE 220 MG ( 50 ) CAPSULE PO SCH (08:42)
[2019-09-01] MEDS ORDERED: ZINC SULFATE 220 MG ( 50 ) CAPSULE PO SCH (09:00)
[2019-09-01 11:31] LABS: MEAN CORPUSCULAR HEMOGLOBIN 30.4 pg (28.0-32.0); MEAN CORPUSCULAR VOLUME 90.9 fL (80.0-94.0); MEAN PLATELET VOLUME 7.4 fl (7.4-10.4); PLATELET 425 x1000/uL (130-400); RED BLOOD CELL COUNT 3.34 mill/uL (4.7-6.1); RED CELL DISTRIBUTION WIDTH 13.2 % (11.6-14.6)
[2019-09-01 11:34] LABS: CHLORIDE 96 mEq/L (98-107)
[2019-09-01 11:40] LABS: HEMATOCRIT. 30.4 % (42.0-52.0); HEMOGLOBIN. 10.2 g/dL (14.0-18.0)
[2019-09-01 11:43] LABS: VANCOMYCIN TROUGH 25.4 ug/mL (5.0-10.0)
[2019-09-01 11:57] LABS: PLATELET ESTIMATE INCREASED
[2019-09-01 12:00] VITALS: BP 158/62
[2019-09-01] MEDS: SODIUM CHLORIDE 0.9% 1,000 ML IV SCH (12:28)
[2019-09-01 16:00] VITALS: BP 105/48
[2019-09-01 20:00] VITALS: BP 115/54
[2019-09-01] MEDS: ENOXAPARIN 40MG/0.4ML SYR SUBCUT SCH (20:00)
[2019-09-01] MEDS: ACETAMINOPHEN 325MG TABLET PO PRN (22:59)
[2019-09-01] MEDS: VANCOMYCIN 1250MG in DEXTROSE 5% WATER 250ML IV SCH (23:58)
[2019-09-02] VITALS: BP 101/50
[2019-09-02 04:00] VITALS: BP 112/54
[2019-09-02] MEDS: PIPERACILLIN/TAZOBACTAM 3.375 G in DEXT 5% WATER 100 ML IV SCH ×4 (05:19→23:26)
[2019-09-02] MEDS: BLOOD SUGAR DIAGNOSTIC STRIP TEST SCH ×4 (06:55→21:00)
[2019-09-02 08:00] VITALS: BP 89/50
[2019-09-02] MEDS: ZINC SULFATE 220 MG ( 50 ) CAPSULE PO SCH (09:03)
[2019-09-02] MEDS: FAMOTIDINE 20MG TABLET PO SCH ×2 (09:03→20:37)
[2019-09-02] MEDS: ASCORBIC ACID 500 MG TABLET PO SCH ×2 (09:03→20:37)
[2019-09-02] MEDS: VANCOMYCIN 1250MG in DEXTROSE 5% WATER 250ML IV SCH ×2 (09:04→20:37)
[2019-09-02] MEDS: INSULIN LISPRO 100 UNITS/ML SUBCUT SCH ×4 (09:20→21:03)
[2019-09-02] MEDS ORDERED: BACITRACIN 15GM TUBE TOP ONE ×2 (09:50→11:48)
[2019-09-02] MEDS ORDERED: BACITRACIN 50,000 UNITS/VIAL ONE ×2 (09:51→11:48)
[2019-09-02] MEDS ORDERED: NORMAL SALINE 0.9% 10 ML SYR ONE ×2 (09:51→11:48)
[2019-09-02] MEDS ORDERED: VANCOMYCIN HCL 1 GM/VIAL ONE ×2 (09:51→11:49)
[2019-09-02] MEDS ORDERED: BUPIVACAINE HCL/PF 0.5% (5MG/ML) 10ML ONE ×2 (09:51→11:48)
[2019-09-02] MEDS ORDERED: MIDAZOLAM HCL 2 MG/2 ML VIAL ONE (12:02)
[2019-09-02] MEDS ORDERED: PROPOFOL 200MG/20ML VIAL IV ONE (12:02)
[2019-09-02] MEDS ORDERED: FENTANYL CITRATE/PF 50MCG/ML 2ML VIAL ONE (12:02)
[2019-09-02] MEDS ORDERED: GLYCOPYRROLATE 0.2 MG/ML 2ML VIAL ONE (12:02)
[2019-09-02] MEDS ORDERED: DEXAMETHASONE 4MG/ML 1ML VIAL ONE (12:08)
[2019-09-02] MEDS ORDERED: ONDANSETRON HCL 4MG/2ML INJ ONE (12:08)
[2019-09-02 16:00] VITALS: BP 94/44
[2019-09-02 20:00] VITALS: BP 103/57
[2019-09-02] MEDS: ENOXAPARIN 40MG/0.4ML SYR SUBCUT SCH (20:37)
[2019-09-03] VITALS: BP 106/57
[2019-09-03 04:00] VITALS: BP 106/57
[2019-09-03] MEDS: PIPERACILLIN/TAZOBACTAM 3.375 G in DEXT 5% WATER 100 ML IV SCH ×2 (05:32→12:56)
[2019-09-03] MEDS: BLOOD SUGAR DIAGNOSTIC STRIP TEST SCH ×4 (06:30→21:06)
[2019-09-03] MEDS: SODIUM CHLORIDE 0.9% 1,000 ML IV SCH (06:47)
[2019-09-03 08:00] VITALS: BP 97/50
[2019-09-03] MEDS: INSULIN LISPRO 100 UNITS/ML SUBCUT SCH ×4 (08:31→21:12)
[2019-09-03] MEDS: VANCOMYCIN 1250MG in DEXTROSE 5% WATER 250ML IV SCH (08:32)
[2019-09-03] MEDS: ZINC SULFATE 220 MG ( 50 ) CAPSULE PO SCH (08:33)
[2019-09-03] MEDS: ASCORBIC ACID 500 MG TABLET PO SCH ×2 (08:33→20:59)
[2019-09-03] MEDS: FAMOTIDINE 20MG TABLET PO SCH ×2 (08:33→20:59)
[2019-09-03 12:00] VITALS: BP 94/53
[2019-09-03 16:00] VITALS: BP 106/54
[2019-09-03 20:00] VITALS: BP 98/65
[2019-09-03] MEDS: ENOXAPARIN 40MG/0.4ML SYR SUBCUT SCH (20:58)
[2019-09-04] VITALS: BP 100/70
[2019-09-04] MEDS: PIPERACILLIN/TAZOBACTAM 3.375 G in DEXT 5% WATER 100 ML IV SCH ×5 (00:35→23:14)
[2019-09-04] MEDS: SODIUM CHLORIDE 0.9% 1,000 ML IV SCH ×2 (03:39→13:30)
[2019-09-04 04:00] VITALS: BP 99/75
[2019-09-04] MEDS: BLOOD SUGAR DIAGNOSTIC STRIP TEST SCH ×4 (06:40→20:44)
[2019-09-04 06:54] LABS: CHLORIDE 99 mEq/L (98-107)
[2019-09-04 08:00] VITALS: BP 96/64
[2019-09-04] MEDS: ZINC SULFATE 220 MG ( 50 ) CAPSULE PO SCH (08:38)
[2019-09-04] MEDS: FAMOTIDINE 20MG TABLET PO SCH ×2 (08:38→20:44)
[2019-09-04] MEDS: ASCORBIC ACID 500 MG TABLET PO SCH ×2 (08:38→20:44)
[2019-09-04] MEDS: INSULIN LISPRO 100 UNITS/ML SUBCUT SCH ×4 (08:53→21:50)
[2019-09-04] MEDS ORDERED: VANCOMYCIN 1250MG in DEXTROSE 5% WATER 250ML IV SCH (09:00)
[2019-09-04 12:00] VITALS: BP 106/54
[2019-09-04] MEDS ORDERED: VANCOMYCIN 1 G PREMIX 200 ML IV SCH (12:00)
[2019-09-04] MEDS ORDERED: VANCOMYCIN 1,000 MG in DEXT 5% WATER 250 ML IV SCH (13:00)
[2019-09-04 16:00] VITALS: BP 97/65
[2019-09-04 20:00] VITALS: BP 115/70
[2019-09-04] MEDS: ENOXAPARIN 40MG/0.4ML SYR SUBCUT SCH (20:43)
[2019-09-05] VITALS: BP 112/62
[2019-09-05 04:00] VITALS: BP 126/61
[2019-09-05] MEDS: PIPERACILLIN/TAZOBACTAM 3.375 G in DEXT 5% WATER 100 ML IV SCH ×3 (06:17→17:11)
[2019-09-05] MEDS: BLOOD SUGAR DIAGNOSTIC STRIP TEST SCH ×4 (06:20→20:57)
[2019-09-05] MEDS: SODIUM CHLORIDE 0.9% 1,000 ML IV SCH ×2 (06:24→20:57)
[2019-09-05 07:23] LABS: BASOPHILS % 0.3 % (0.0-2.0); HEMATOCRIT. 25.4 % (42.0-52.0); HEMOGLOBIN. 8.5 g/dL (14.0-18.0); LYMPHOCYTES % 8.8 % (20.0-50.0); MEAN CORPUSCULAR HEMOGLOBIN 30.1 pg (28.0-32.0); MEAN CORPUSCULAR VOLUME 90.4 fL (80.0-94.0); MEAN PLATELET VOLUME 7.2 fl (7.4-10.4); MONOCYTES % 11.6 % (2.0-8.0); NEUTROPHILS % 78.3 % (40.0-76.0); PLATELET 384 x1000/uL (130-400); RED BLOOD CELL COUNT 2.81 mill/uL (4.7-6.1); RED CELL DISTRIBUTION WIDTH 13.9 % (11.6-14.6)
[2019-09-05 07:31] LABS: CHLORIDE 103 mEq/L (98-107)
[2019-09-05 08:00] VITALS: BP 132/67
[2019-09-05] MEDS: ZINC SULFATE 220 MG ( 50 ) CAPSULE PO SCH (09:23)
[2019-09-05] MEDS: ASCORBIC ACID 500 MG TABLET PO SCH ×2 (09:23→20:54)
[2019-09-05] MEDS: FAMOTIDINE 20MG TABLET PO SCH ×2 (09:23→20:54)
[2019-09-05] MEDS: INSULIN LISPRO 100 UNITS/ML SUBCUT SCH ×4 (10:11→21:20)
[2019-09-05 12:00] VITALS: BP 132/63
[2019-09-05] MEDS ORDERED: VANCOMYCIN 1,000 MG in DEXT 5% WATER 250 ML IV NR (15:00)
[2019-09-05 16:00] VITALS: BP 131/69
[2019-09-05 20:00] VITALS: BP 127/65
[2019-09-05] MEDS: ENOXAPARIN 40MG/0.4ML SYR SUBCUT SCH (20:55)
[2019-09-06] VITALS: BP 130/66
[2019-09-06 04:00] VITALS: BP 126/66
[2019-09-06] MEDS: BLOOD SUGAR DIAGNOSTIC STRIP TEST SCH ×4 (06:16→21:06)
[2019-09-06] MEDS: SODIUM CHLORIDE 0.9% 1,000 ML IV SCH ×2 (06:25→16:09)
[2019-09-06 08:00] VITALS: BP 135/69
[2019-09-06] MEDS: ZINC SULFATE 220 MG ( 50 ) CAPSULE PO SCH (08:44)
[2019-09-06] MEDS: FAMOTIDINE 20MG TABLET PO SCH ×2 (08:44→21:06)
[2019-09-06] MEDS: ASCORBIC ACID 500 MG TABLET PO SCH ×2 (08:44→21:06)
[2019-09-06] MEDS: INSULIN LISPRO 100 UNITS/ML SUBCUT SCH ×5 (09:26→21:43)
[2019-09-06 12:00] VITALS: BP 127/64
[2019-09-06 16:00] VITALS: BP 136/69
[2019-09-06] MEDS: PIPERACILLIN/TAZOBACTAM 3.375 G in DEXT 5% WATER 100 ML IV SCH (17:31)
[2019-09-06 20:00] VITALS: BP 132/68
[2019-09-06] MEDS: ENOXAPARIN 40MG/0.4ML SYR SUBCUT SCH (21:06)
[2019-09-07] VITALS: BP 135/66
[2019-09-07] MEDS: PIPERACILLIN/TAZOBACTAM 3.375 G in DEXT 5% WATER 100 ML IV SCH ×5 (00:01→23:43)
[2019-09-07] MEDS: SODIUM CHLORIDE 0.9% 1,000 ML IV SCH ×2 (01:30→21:03)
[2019-09-07 04:00] VITALS: BP 137/69
[2019-09-07] MEDS: BLOOD SUGAR DIAGNOSTIC STRIP TEST SCH ×4 (06:26→21:19)
[2019-09-07] MEDS: INSULIN LISPRO 100 UNITS/ML SUBCUT SCH ×4 (08:50→21:33)
[2019-09-07] MEDS: ASCORBIC ACID 500 MG TABLET PO SCH ×2 (08:51→21:03)
[2019-09-07] MEDS: FAMOTIDINE 20MG TABLET PO SCH ×2 (08:51→21:03)
[2019-09-07] MEDS: ZINC SULFATE 220 MG ( 50 ) CAPSULE PO SCH (08:51)
[2019-09-07 12:00] VITALS: BP 137/62
[2019-09-07] MEDS ORDERED: VANCOMYCIN 750 MG PREMIX 150 ML IV NR (13:00)
[2019-09-07 16:00] VITALS: BP 140/75
[2019-09-07 20:00] VITALS: BP 125/57
[2019-09-07] MEDS: ENOXAPARIN 40MG/0.4ML SYR SUBCUT SCH (21:03)
[2019-09-08] VITALS: BP 116/61
[2019-09-08 04:00] VITALS: BP 125/61
[2019-09-08] MEDS: PIPERACILLIN/TAZOBACTAM 3.375 G in DEXT 5% WATER 100 ML IV SCH ×2 (05:41→12:36)
[2019-09-08] MEDS: BLOOD SUGAR DIAGNOSTIC STRIP TEST SCH ×2 (06:22→12:36)
[2019-09-08 07:02] LABS: CHLORIDE 107 mEq/L (98-107)
[2019-09-08] MEDS: SODIUM CHLORIDE 0.9% 1,000 ML IV SCH (07:30)
[2019-09-08 08:00] VITALS: BP 128/64
[2019-09-08] MEDS: FAMOTIDINE 20MG TABLET PO SCH (08:57)
[2019-09-08] MEDS: ZINC SULFATE 220 MG ( 50 ) CAPSULE PO SCH (08:57)
[2019-09-08] MEDS: ASCORBIC ACID 500 MG TABLET PO SCH (08:57)
[2019-09-08] MEDS: INSULIN LISPRO 100 UNITS/ML SUBCUT SCH ×2 (09:02→13:05)
[2019-09-08] MEDS ORDERED: VANCOMYCIN 1 G PREMIX 200 ML IV SCH (12:00)
== END 2019-09-08 16:20 | DRG 871 ==
LOC: ER 09:53 → 6EST 12:06 → EDBEDREQ 12:21 → SUPCPDRO 12:34 → EDBEDREQSVC 13:13 → ENRESERV 16:58 → ER 18:24
PROVIDERS: ADMIT Internal Medicine; ATTEND Internal Medicine
DX: A41.9 Sepsis, unspecified organism (principal); A48.0 Gas gangrene; E43 Unspecified severe protein-calorie malnutrition; E87.1 Hypo-osmolality and hyponatremia; N17.9 Acute kidney failure, unspecified; E11.52 Type 2 diabetes mellitus with diabetic peripheral angiopathy with gangrene; L03.115 Cellulitis of right lower limb; M86.8X7 Other osteomyelitis, ankle and foot; D64.9 Anemia, unspecified; I10 Essential (primary) hypertension; E78.5 Hyperlipidemia, unspecified; E11.40 Type 2 diabetes mellitus with diabetic neuropathy, unspecified; E11.65 Type 2 diabetes mellitus with hyperglycemia; E11.69 Type 2 diabetes mellitus with other specified complication; E83.51 Hypocalcemia; I89.0 Lymphedema, not elsewhere classified; Z20.828 Contact with and (suspected) exposure to other viral communicable diseases; E78.00 Pure hypercholesterolemia, unspecified; Z86.14 Personal history of Methicillin resistant Staphylococcus aureus infection; Z59.0 Homelessness; Z72.0 Tobacco use; Z79.4 Long term (current) use of insulin; Z89.612 Acquired absence of left leg above knee; Z89.519 Acquired absence of unspecified leg below knee; Z91.19 Patient's noncompliance with other medical treatment and regimen; Z68.22 Body mass index [BMI] 22.0-22.9, adult
CPT/HCPCS: 36415; 71045; 73590; 73630; 80048; 80053; 80202; 80305; 80320; 81003; 82550; 82607; 82746; 82962; 83036; 83540; 83550; 83605; 83880; 84145; 84439; 84443; 84484; 85025; 85651; 86140; 87070; 87077; 87186; 87635; 93005; 93306; 93922; 93970; 99291; J1100; J1650; J1815; J2250; J2405; J2543; J2704; J3010; J3370; J3490; J7030; J7060; G0480; U0003-CS